=== PATIENT | female | born 1990 | race African-American/Black ===

== ENCOUNTER 2017-01-05 03:50 | Emergency (ER) | payer OTHER ==
[2017-01-05 04:51] VITALS: BMI 28.0
[2017-01-05 05:13] LABS: BASOPHIL 0.6 % (0-2.0); EOSINOPHIL 0.7 % (0-4.5); MCH 28.9 pg (25.7-33.7); MCHC 33.3 g/dl (32.0-36.0); MEAN CELL VOLUME 86.6 fl (80-96); MEAN PLT VOLUME 7.6 fl (7.5-11.1); NEUTROPHILS 62.2 % (42.8-82.8); PLATELET COUNT 270 K/MM3 (134-434); RDW 14.1 % (11.6-15.6); WHITE BLOOD COUNT 8.1 K/mm3 (4.0-10.0)
--- NOTE | 2017-01-05 05:21 | PDOC ---
History of Present Illness - General History Source: Patient Exam Limitations: No Limitations - History of Present Illness Travel History: No Initial Comments: 01/05/17 05:05 27yo Female patient 5 weeks with no significant past medical history presents to ED c/o abd cramping. Patient states symptoms began last week Monday. 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 Medina) and confirmed by urine. Patient reports while at work today, pain in abd intensified and was sent to ED by nursing mill labor supervisor for evaluation. Patient denies vaginal bleeding, dysuria, hematuria, back pain, vomiting, diarrhea, fever, or any other complaints at this time. Dr. Grossman (PCP) Dr. Medina (CLAY PROCESSING [employer]ER) Timing/Duration: reports: changing over time Quality: reports: moderate, stabbing Abdominal Pain Onset Location: reports: suprapubic (Left Suprapubic) Pain Radiation: reports: no radiation Activities at Onset: reports: none Treatment Prior to Arrive: worse with: analgesics, antacids, cold pack, heat, laxative, enema, other Aggravating Factors: worse with: None, Defecation, Eating, Emotional upset, Exertion, [place], Movement, Voiding, Change in position <Obed Post - Last Filed: 01/05/17 05:05> <Gisel Mcdonald - Last Filed: 01/05/17 10:51> - General Chief Complaint: Pain Stated Complaint: 5 WEEKS * CRAMPING Time Seen by Provider: 01/05/17 04:09 Past History - Travel Traveled outside of the country in the last 30 days: No Close contact w/someone who was outside of country & ill: No - Suicide/Smoking/Psychosocial Hx Smoking History: Never smoked Have you smoked in the past 12 months: No Information on smoking cessation initiated: No Hx Alcohol Use: No Drug/Substance Use Hx: No <Obed Post - Last Filed: 01/05/17 05:05> <Gisel Mcdonald - Last Filed: 01/05/17 10:51> - Past Medical History Allergies/Adverse Reactions: Allergies Allergy/AdvReac Type Severity Reaction Status Date / Time No Known Allergies Allergy Verified 01/05/17 04:24 Home Medications: Ambulatory Orders NK [No Known Home Medication] 09/21/17 Abd/GI Specific PMHX - Complaint Specific PMHX Colitis: No Diverticulitis: No Gall Bladder Disease: No GERD: No Hepatitis: No Irritable Bowel Synd (IBS): No Pancreatitis: No GI Ulcer Disease: No <Obed Post - Last Filed: 01/05/17 05:05> Review of Systems - Review of Systems Able to Perform ROS?: Yes Is the patient limited Setswana proficient: No Constitutional: No: Chills, Fever Cardiac (ROS): No: Chest Pain ABD/GI: Yes: Nausea. No: Constipated, Diarrhea, Poor Appetite, Poor Fluid Intake, Vomiting, Abdominal cramping : Yes: Other (Left Suprapubic Region). No: Burning, Dysuria, Discharge, Flank Pain, Hematuria, Pain, Urgency Musculoskeletal: No: Back Pain Integumentary: No: Dryness, Erythema, Rash, Sweating Neurological: No: Headache, Seizure, Ataxia All Other Systems: Reviewed and Negative <Obed Post - Last Filed: 01/05/17 05:05> *Physical Exam - Vital Signs Last Vital Signs Temp Pulse Resp BP Pulse Ox 98.9 F 104 H 14 125/79 98 01/05/17 04:25 01/05/17 04:25 01/05/17 04:25 01/05/17 04:25 01/05/17 04:25 - Physical Exam General Appearance: Yes: Nourished, Appropriately Dressed. No: Apparent Distress, Mild Distress, Moderate Distress, Severe Distress Neck: positive: Trachea midline, Normal Thyroid, Supple. negative: Rigid, Decreased range of motion, Stridor, Lymphadenopathy (R), Lymphadenopathy (L) Respiratory/Chest: positive: Lungs Clear, Normal Breath Sounds. negative: Chest Tender, Respiratory Distress, Accessory Muscle Use, Labored Respiration, Rapid RR, Rhonchi, Stridor Cardiovascular: positive: Regular Rhythm, Regular Rate Gastrointestinal/Abdominal: positive: Normal Bowel Sounds, Tender, Soft, Tenderness (Left suprapubic region). negative: Distended, Guarding, Rebound, Hernia, Mass Musculoskeletal: positive: Normal Inspection. negative: CVA Tenderness, Decreased Range of Motion, Vertebral Tenderness Extremity: positive: Normal Capillary Refill, Normal Inspection, Normal Range of Motion, Pelvis Stable Integumentary: positive: Normal Color, Dry, Warm. negative: Rash, Swelling, Bruising Neurologic: positive: lead rider II-XII NML intact, Fully Oriented, Alert, Normal Mood/ Affect, Normal Response, Motor Strength 5/5 <Obed Post - Last Filed: 01/05/17 05:05> - Vital Signs Last Vital Signs Temp Pulse Resp BP Pulse Ox 98.9 F 104 H 14 125/79 98 01/05/17 04:25 01/05/17 04:25 01/05/17 04:25 01/05/17 04:25 01/05/17 04:25 <Gisel Mcdonald - Last Filed: 01/05/17 10:51> ED Treatment Course - RADIOLOGY Radiology Studies Ordered: Category Date Time Status <14WKS US [US] Stat Ultrasound 01/05/17 04:26 Ordered <Obed Post - Last Filed: 01/05/17 05:05> - LABORATORY CBC & Chemistry Diagram: 01/05/17 04:55 01/05/17 04:55 - ADDITIONAL ORDERS Additional order review: Laboratory Results 01/05/17 01/05/17 05:50 04:55 Sodium 135 L Potassium 3.7 Chloride 104 Carbon Dioxide 25 Anion Gap 6 L BUN 11 Creatinine 0.7 Creat Clearance w eGFR > 60 Random Glucose 78 Calcium 8.6 Total Bilirubin 0.3 AST 11 L ALT 21 Alkaline Phosphatase 57 Total Protein 6.9 Albumin 3.7 TSH 6.44 H Beta HCG, Quant 3750.4 Urine Color Straw Urine Appearance Slcloudy Urine pH 5.0 Urine Protein Negative Urine Glucose (UA) Negative Urine Ketones Negative Urine Blood Negative Urine Nitrite Negative Urine Bilirubin Negative Urine Urobilinogen Negative Urine RBC 1 Urine WBC 9 Ur Epithelial Cells Few Urine Bacteria Rare Urine Mucus Rare Urine HCG, Qual Positive 01/05/17 04:55 RBC 4.29 MCV 86.6 MCHC 33.3 RDW 14.1 MPV 7.6 Neutrophils % 62.2 Lymphocytes % 26.9 Monocytes % 9.6 Eosinophils % 0.7 Basophils % 0.6 <Gisel Mcdonald - Last Filed: 01/05/17 10:51> Medical Decision Making - Medical Decision Making 01/05/17 10:37 cc: 01/05/17 10:50 dc insturctions verbally discussed with the pt. I have given her copies of the labs and the US report. pt has no pain is table for discharge. heplock removed. <Gisel Mcdonald - Last Filed: 01/05/17 10:51> *DC/Admit/Observation/Transfer <Obed Post - Last Filed: 01/05/17 05:05> <Gisel Mcdonald - Last Filed: 01/05/17 10:51> Diagnosis at time of Disposition: at early stage - Discharge Dispostion Disposition: HOME Condition at time of disposition: Good - Referrals Referrals: Chery Santiago MD [Staff Physician] - STAFF,NOT ON [Primary Care Provider] - - Patient Instructions Additional Instructions: please follow with the channel installer or your financial assistance advisor for follow up the ultrasound done today shows an early in the uterus (where the should be) please take vitamins (over the counter any brand of vitamin with folic acid) return to ER for any worsening pain
[2017-01-05 05:35] LABS: ALBUMIN 3.7 g/dl (3.4-5.0); ANION GAP 6 (8-16); BILIRUBIN,TOTAL 0.3 mg/dL (0.2-1.0); CALCIUM 8.6 mg/dL (8.5-10.1); CO2 25 mmol/L (21-32); CREATININE 0.7 mg/dL (0.55-1.02); GLUCOSE,RANDOM 78 mg/dL (74-106); SGOT/AST 11 U/L (15-37); SGPT/ALT 21 U/L (12-78); TOT PROT 6.9 g/dl (6.4-8.2)
--- NOTE | 2017-01-05 05:49 | PDOC ---
*Physical Exam - Vital Signs Last Vital Signs Temp Pulse Resp BP Pulse Ox 98.9 F 104 H 14 125/79 98 01/05/17 04:25 01/05/17 04:25 01/05/17 04:25 01/05/17 04:25 01/05/17 04:25 ED Treatment Course - LABORATORY CBC & Chemistry Diagram: 01/05/17 04:55 01/05/17 04:55 - ADDITIONAL ORDERS Additional order review: 01/05/17 04:55 RBC 4.29 MCV 86.6 MCHC 33.3 RDW 14.1 MPV 7.6 Neutrophils % 62.2 Lymphocytes % 26.9 Monocytes % 9.6 Eosinophils % 0.7 Basophils % 0.6 Medical Decision Making - Medical Decision Making 01/05/17 05:49 agree with care from ABHINAV Post *DC/Admit/Observation/Transfer - Referrals Referrals: STAFF,NOT ON [Primary Care Provider] - - Patient Instructions - Post Discharge Activity
[2017-01-05 05:51] LABS: ALK PHOS 57 U/L (45-117); THYROID STIMULATING HORMONE 6.44 uIU/ml (0.358-3.74)
[2017-01-05 06:10] LABS: URINE APPEARANCE SLCLOUDY; URINE BILIRUBIN NEGATIVE (NEGATIVE); URINE BLOOD NEGATIVE (NEGATIVE); URINE COLOR STRAW; URINE GLUCOSE (UA) NEGATIVE (NEGATIVE); URINE KETONE NEGATIVE (NEGATIVE); URINE NITRITE NEGATIVE (NEGATIVE); URINE PROTEIN NEGATIVE (NEGATIVE); URINE UROBILINOGEN NEGATIVE mg/dL (0.2-1.0)
[2017-01-05 06:14] LABS: URINE LEUK ESTERASE 1+ (NEGATIVE)
[2017-01-05 06:16] LABS: URINE BACTERIA RARE /hpf (NONE SEEN); URINE MUCUS RARE; URINE RBC 1 /hpf (0-3); URINE WBC 9 /hpf (3-5)
[2017-01-05 10:51] VITALS: BP 118/74; PULSE 77; TEMP 98.6
== END 2017-01-05 10:48 | disposition home or self-care (01) ==
LOC: JER 03:50 → EDBD 03:50 → JER 10:48
DX: O26.891 Other specified pregnancy related conditions, first trimester (principal); R10.32 Left lower quadrant pain; Z3A.01 Less than 8 weeks gestation of pregnancy
CPT/HCPCS: 36415; 76801-TC; 76817-TC; 80053; 81003; 81015; 84443; 84702; 84703; 85025; 99283-25